=== PATIENT | female | born 1975 | race Caucasian/White ===

== ENCOUNTER 2017-05-05 13:18 | Emergency (ER) | payer BC ==
[~2017-05-05] VITALS: Ht 154.9 cm; Wt 91.6 kg
[2017-05-05] MEDS ORDERED: ONDANSETRON 2MG/ML, 2ML IVPush ONE (13:30)
[2017-05-05] MEDS ORDERED: SODIUM CHLORIDE 0.9% 1,000ML IVBOLUS ONE (13:30)
[2017-05-05 13:59] LABS: BASOPHILS # (AUTO) 0.05 x10^3/uL (0-0.1); BASOPHILS % (AUTO) 0 % (0-1); EOSINOPHILS % (AUTO) 1 % (1-7); LYMPHOCYTES # (AUTO) 1.95 x10^3/uL (1-3.4); LYMPHOCYTES % (AUTO) 13 % (22-44); MD NO; MEAN CORPUSCULAR HEMOGLOBIN 28.8 pg (27.0-34.8); MEAN CORPUSCULAR HGB CONC 33.6 g/dL (32.4-35.8); MEAN CORPUSCULAR VOLUME 85.8 fL (80-100); MEAN PLATELET VOLUME 7.8 fL (7.4-10.4); MONOCYTES % (AUTO) 5 % (2-9); NEUTROPHILS # (AUTO) 11.93 x10^3/uL (1.8-6.8); NEUTROPHILS % (AUTO) 81 % (42-75); PLATELET COUNT 311 x10^3/uL (130-400); RED BLOOD COUNT 4.36 x10^6/uL (3.82-5.3); RED CELL DISTRIBUTION WIDTH 13.5 % (9.6-15.2)
[2017-05-05 14:03] LABS: ALBUMIN 2.9 g/dL (3.4-5.0); ANION GAP 11 mmol/L (5-15); CALCIUM 8.1 mg/dL (8.5-10.1); CHLORIDE 106 mmol/L (98-107)
[2017-05-05 14:21] LABS: ALANINE AMINOTRANSFERASE 26 U/L (12-78); ALKALINE PHOSPHATASE 65 U/L (45-117); BILIRUBIN,TOTAL 0.5 mg/dL (0.2-1.0); TOTAL PROTEIN 6.9 g/dL (6.4-8.2)
[2017-05-05] MEDS ORDERED: PNV1TAB.5 PO (14:23)
[2017-05-05] MEDS ORDERED: ACET650S21 PO (14:23)
[2017-05-05 15:13] LABS: MICROSCOPIC INDICATED
[2017-05-05 15:32] LABS: CULTURE INDICATED? YES
[2017-05-05 15:57] VITALS: BP 140/91
== END 2017-05-05 16:20 | disposition home or self-care (01) ==
LOC: ED 16:00
DX: O26.892 Other specified pregnancy related conditions, second trimester (principal); Z3A.14 14 weeks gestation of pregnancy; Z79.82 Long term (current) use of aspirin; Z79.899 Other long term (current) drug therapy
CPT/HCPCS: 36415; 70450; 80053; 80307; 81001; 84702; 85025; 87086; 96360; 99285; J7030

== ENCOUNTER 2017-09-03 14:02 | Outpatient (CLI) | payer OTHER, BC ==
[~2017-09-03 14:02] MED LIST: ACET650S21 PO; PNV1TAB.5 PO
[2017-09-03] MEDS ORDERED: BETAMETHASONE 6 MG/ML, 5ML IM ONE ×2 (14:15→14:30)
== END 2017-09-03 14:29 | disposition home or self-care (01) ==
LOC: LDOP 14:02
PROVIDERS: ATTEND Obstetrics & Gynecology Maternal & Fetal Medicine
DX: Z34.80 Encounter for supervision of other normal pregnancy, unspecified trimester (principal)
CPT/HCPCS: 96372; J0702

== ENCOUNTER 2017-09-04 14:02 | Outpatient (CLI) | payer OTHER, BC ==
[2017-09-04] MEDS ORDERED: BETAMETHASONE 6 MG/ML, 5ML IM ONE (14:30)
[2017-09-04] MEDS ORDERED: PLEASE ENTER HEIGHT AND WEIGHT MC SCH (14:30)
== END 2017-09-04 14:15 | disposition home or self-care (01) ==
LOC: LDOP 14:02
PROVIDERS: ATTEND Obstetrics & Gynecology Maternal & Fetal Medicine
DX: Z34.80 Encounter for supervision of other normal pregnancy, unspecified trimester (principal)
CPT/HCPCS: 96372; J0702

== ENCOUNTER 2017-10-03 04:32 | Inpatient (IN) | payer BC, OTHER ==
[~2017-10-03] VITALS: Ht 154.9 cm; Wt 98.1 kg
[2017-10-03] MEDS ORDERED: OXYTOCIN 30U/ 0.9% NaCL 500ML 500 ML IV ONE (05:42)
[2017-10-03] MEDS ORDERED: ONDANSETRON 2MG/ML, 2ML IVPush PRN (06:00)
[2017-10-03] MEDS ORDERED: FENTANYL PF 100 MCG/2ML IV PRN (06:00)
[2017-10-03] MEDS ORDERED: FENTANYL PF 100 MCG/2ML IVPush PRN (06:00)
[2017-10-03] MEDS ORDERED: MISOPROSTOL 25 MCG TABLET VG PRN (06:00)
[2017-10-03] MEDS ORDERED: TERBUTALINE 1 MG/ML, 1ML IVPush PRN (06:00)
[2017-10-03] MEDS ORDERED: NEWBORN KIT ONE (06:04)
[2017-10-03] MEDS ORDERED: MISOPROSTOL 200 MCG TABLET ONE (06:05)
[2017-10-03] MEDS ORDERED: OXYTOCIN 30U/ 0.9% NaCL 500ML 500 ML ONE (06:05)
[2017-10-03] MEDS: LACTATED RINGERS 1,000 ML IV SCH ×2 (06:10→10:44)
[2017-10-03 06:14] LABS: BASOPHILS # (AUTO) 0.03 x10^3/uL (0-0.1); BASOPHILS % (AUTO) 0 % (0-1); EOSINOPHILS # (AUTO) 0.06 x10^3/uL (0-0.4); EOSINOPHILS % (AUTO) 1 % (1-7); LYMPHOCYTES # (AUTO) 2.01 x10^3/uL (1-3.4); LYMPHOCYTES % (AUTO) 18 % (22-44); MD NO; MEAN CORPUSCULAR HEMOGLOBIN 28.7 pg (27.0-34.8); MEAN CORPUSCULAR HGB CONC 33.3 g/dL (32.4-35.8); MEAN CORPUSCULAR VOLUME 86.2 fL (80-100); MEAN PLATELET VOLUME 7.6 fL (7.4-10.4); MONOCYTES # (AUTO) 0.81 x10^3/uL (0.2-0.8); MONOCYTES % (AUTO) 7 % (2-9); NEUTROPHILS % (AUTO) 75 % (42-75); PLATELET COUNT 253 x10^3/uL (130-400); RED BLOOD COUNT 4.34 x10^6/uL (3.82-5.3); RED CELL DISTRIBUTION WIDTH 14.6 % (9.6-15.2)
[2017-10-03] MEDS ORDERED: OXYTOCIN 30U/ 0.9% NaCL 500ML 500 ML IV PRN (06:28)
[2017-10-03 08:28] LABS: AMPHETAMINE SCREEN, URINE Negative (Negative); BARBITURATE SCREEN, URINE Negative (Negative); BENZODIAZEPINE SCREEN, URINE Negative (Negative); CANNABINOID SCREEN, URINE Negative (Negative); COCAINE SCREEN, URINE Negative (Negative); METHADONE SCREEN, URINE Negative (Negative); OPIATE SCREEN, URINE Negative (Negative)
[2017-10-03] MEDS ORDERED: BUPIVACAINE 0.25% ONE (10:35)
[2017-10-03] MEDS ORDERED: FENTANYL/BUPIV./NS/PF 250 ML EPIDCONT SCH ×2 (10:38→10:46)
[2017-10-03] MEDS ORDERED: LACTATED RINGERS 1,000 ML IV SCH (10:46)
[2017-10-03] MEDS ORDERED: LACTATED RINGERS 1,000 ML IVBOLUS PRN (11:00)
[2017-10-03] MEDS ORDERED: FENTANYL PF 500 MCG, BUPIVACAINE/PF 0.5%, 30ML 62.5 ML in SODIUM CHLORIDE 0.9% 177.5 ML EPIDCONT SCH (11:00)
[2017-10-03] MEDS ORDERED: ASPI-515 PO (11:39)
[2017-10-03] MEDS ORDERED: VALA10004 PO (11:43)
[2017-10-03] MEDS: OXYTOCIN 30U/ 0.9% NaCL 500ML 500 ML IV SCH (18:21)
[2017-10-03] MEDS ORDERED: OXYcodone IR 5MG TABLET PO PRN (18:30)
[2017-10-03] MEDS ORDERED: ONDANSETRON 2MG/ML, 2ML IV PRN (18:30)
[2017-10-03] MEDS ORDERED: ACETAMINOPHEN 325 MG TABLET PO PRN (18:30)
[2017-10-03] MEDS ORDERED: OXYcodone/APAP 5/325MG TABLET PO PRN (18:30)
[2017-10-03] MEDS ORDERED: MISOPROSTOL 200 MCG TABLET PR PRN (18:30)
[2017-10-04 00:10] VITALS: BP 130/81
[2017-10-04 04:10] VITALS: BP 134/77
[2017-10-04] MEDS: OXYTOCIN 30U/ 0.9% NaCL 500ML 500 ML IV SCH ×2 (04:21→14:21)
[2017-10-04] MEDS: IBUPROFEN 600 MG TABLET PO PRN ×3 (05:54→21:52)
[2017-10-04 06:03] LABS: MEAN CORPUSCULAR HEMOGLOBIN 28.7 pg (27.0-34.8); MEAN CORPUSCULAR HGB CONC 33.1 g/dL (32.4-35.8); MEAN CORPUSCULAR VOLUME 86.6 fL (80-100); MEAN PLATELET VOLUME 7.6 fL (7.4-10.4); PLATELET COUNT 239 x10^3/uL (130-400); RED BLOOD COUNT 3.97 x10^6/uL (3.82-5.3); RED CELL DISTRIBUTION WIDTH 14.7 % (9.6-15.2)
[2017-10-04 06:30] LABS: BASOPHILS # (AUTO) 0.27 x10^3/uL (0-0.1); BASOPHILS % (AUTO) 2 % (0-1); EOSINOPHILS # (AUTO) 0.06 x10^3/uL (0-0.4); EOSINOPHILS % (AUTO) 0 % (1-7); LYMPHOCYTES # (AUTO) 2.29 x10^3/uL (1-3.4); LYMPHOCYTES % (AUTO) 13 % (22-44); MONOCYTES # (AUTO) 1.05 x10^3/uL (0.2-0.8); MONOCYTES % (AUTO) 6 % (2-9); NEUTROPHILS # (AUTO) 14.37 x10^3/uL (1.8-6.8); NEUTROPHILS % (AUTO) 80 % (42-75)
[2017-10-04 06:50] LABS: MD NO
[2017-10-04 07:30] VITALS: BP 121/78
[2017-10-04] MEDS: DOCUSATE 100 MG CAPSULE PO PRN ×2 (09:10→21:52)
[2017-10-04] MEDS: PRENATAL VIT/IRON/FA 1 EACH TABLET PO SCH (09:10)
[2017-10-04 11:50] VITALS: BP 135/84
[2017-10-04 15:45] VITALS: BP 151/74
[2017-10-04 20:20] VITALS: BP 138/85
[2017-10-04] MEDS ORDERED: DIPH,PERTUSS(ACELL),TET VAC/PF NC IM-VACC ONE (23:00)
[2017-10-05] MEDS: OXYTOCIN 30U/ 0.9% NaCL 500ML 500 ML IV SCH ×2 (00:21→10:21)
[2017-10-05 07:55] VITALS: BP 143/91
[2017-10-05] MEDS: IBUPROFEN 600 MG TABLET PO PRN (08:19)
[2017-10-05] MEDS: DOCUSATE 100 MG CAPSULE PO PRN (08:19)
[2017-10-05] MEDS: PRENATAL VIT/IRON/FA 1 EACH TABLET PO SCH (08:23)
[2017-10-05] MEDS ORDERED: IBUP-1222 PO (09:31)
== END 2017-10-05 14:20 | disposition home or self-care (01) | DRG 775 ==
LOC: LDIP 05:15 → 2NW 20:18
PROVIDERS: ADMIT Obstetrics & Gynecology; ATTEND Obstetrics & Gynecology
PROC: 10E0XZZ Delivery of Products of Conception, External Approach (ICD-10-PCS; principal; 2017-10-03)
PROC: 10907ZC Drainage of Amniotic Fluid, Therapeutic from Products of Conception, Via Natural or Artificial Opening (ICD-10-PCS; 2017-10-03)
PROC: 0HQ9XZZ Repair Perineum Skin, External Approach (ICD-10-PCS; 2017-10-03)
PROC: 10D07Z6 Extraction of Products of Conception, Vacuum, Via Natural or Artificial Opening (ICD-10-PCS; 2017-10-03)
PROC: 3E033VJ Introduction of Other Hormone into Peripheral Vein, Percutaneous Approach (ICD-10-PCS; 2017-10-03)
PROC: 10H073Z Insertion of Monitoring Electrode into Products of Conception, Via Natural or Artificial Opening (ICD-10-PCS; 2017-10-03)
PROC: 4A1H74Z Monitoring of Products of Conception, Cardiac Electrical Activity, Via Natural or Artificial Opening (ICD-10-PCS; 2017-10-03)
PROC: 3E0R3BZ Introduction of Anesthetic Agent into Spinal Canal, Percutaneous Approach (ICD-10-PCS; 2017-10-03)
PROC: 00HU33Z Insertion of Infusion Device into Spinal Canal, Percutaneous Approach (ICD-10-PCS; 2017-10-03)
DX: O36.5932 Maternal care for other known or suspected poor fetal growth, third trimester, fetus 2 (principal); O32.2XX2 Maternal care for transverse and oblique lie, fetus 2; O30.003 Twin pregnancy, unspecified number of placenta and unspecified number of amniotic sacs, third trimester; O40.3XX2 Polyhydramnios, third trimester, fetus 2; O24.420 Gestational diabetes mellitus in childbirth, diet controlled; Z3A.36 36 weeks gestation of pregnancy; Z37.2 Twins, both liveborn; O70.0 First degree perineal laceration during delivery
CPT/HCPCS: 36415; 76815; 80307; 82803; 82962; 85025; 86850; 86900; 88307; 90715; J3010; J3490; J2590; J7050; J7120